=== PATIENT | male | born 1945 | race Two or more races ===

== ENCOUNTER → 2022-12-01 | Outpatient (CLI) | payer OTHER | END | disposition home or self-care (01) | LOC: LAB 14:34 | PROVIDERS: ATTEND Internal Medicine | DX: R19.7 Diarrhea, unspecified (principal) | CPT/HCPCS: 87177 ==

== ENCOUNTER → 2022-12-08 | Outpatient (CLI) | payer OTHER | END | disposition home or self-care (01) | LOC: LAB 15:16 | PROVIDERS: ATTEND Internal Medicine | DX: K52.9 Noninfective gastroenteritis and colitis, unspecified (principal) | CPT/HCPCS: 87045; 87427; 87493 ==

== ENCOUNTER 2022-12-14 12:48 | Inpatient (IN) | payer OTHER ==
[~2022-12-14] VITALS: Ht 188 cm; Wt 83.5 kg
[2022-12-14 13:10] VITALS: PULSE 22; RESP 22; O2SAT 6
[2022-12-14] MEDS ORDERED: FUROSEMIDE 40 MG/4 ML VIAL IV ONE (13:15)
[2022-12-14 13:52] LABS: Urine Bacteria FEW /hpf (None Seen); Urine Blood Negative /uL (Negative); Urine Clarity Clear (Clear); Urine Color Yellow (Yellow); Urine Protein, UAD 1+ (Negative); Urine Specific Gravity 1.014 (1.001-1.035); Urine Urobilinogen Normal (Negative); Urine WBC 1 /hpf (0 - 3)
[2022-12-14] MEDS ORDERED: METO-289 PO (14:05)
[2022-12-14] MEDS ORDERED: POTA-264 PO (14:05)
[2022-12-14] MEDS ORDERED: ATOR40TA52 PO (14:05)
[2022-12-14] MEDS ORDERED: CLON-853 PO (14:05)
[2022-12-14] MEDS ORDERED: FURO40TA4 PO (14:05)
[2022-12-14] MEDS ORDERED: TRAM50TA2 PO (14:05)
[2022-12-14] MEDS ORDERED: ALPR0.5T7 PO (14:07)
[2022-12-14] MEDS ORDERED: LORA-1105 PO (14:07)
[2022-12-14 14:08] LABS: Albumin 3.6 g/dL (3.2-4.8); Alkaline Phosphatase 291 U/L (46-116); Anion Gap 13 (5-15); Aspartate Aminotransferase 804 U/L (13-40); BUN/Creatinine Ratio 20.6 (10.0-20.0); Bilirubin, Total 2.9 mg/dL (0.2-1.0); Blood Urea Nitrogen 41 mg/dL (9-23); Calcium 8.9 mg/dL (8.5-10.1); Carbon Dioxide 21 mmol/L (20-30); Chloride 105 mmol/L (98-107); Glucose 135 mg/dL (74-106); Potassium 4.9 mmol/L (3.5-5.1); Sodium 139 mmol/L (136-145)
[2022-12-14 14:08] LABS: Lactic Acid w/Reflex 3.4 mmol/L (0.4-2.0)
[2022-12-14] MEDS ORDERED: TEMA30CA PO (14:08)
[2022-12-14] MEDS ORDERED: ONDA-155 PO (14:09)
[2022-12-14 14:11] LABS: Basophils # (auto) 0 10 ^3/uL (0-0.2); Basophils % (auto) 0.3 % (0.0-2.0); Eosinophils # (auto) 0.1 10 ^3/uL (0-0.8); Eosinophils % (auto) 1.1 % (0.0-7.0); Hematocrit 46.7 % (41.0-53.0); Hemoglobin 14.8 g/dL (13.5-17.5); Lymphocytes # (auto) 1.1 10 ^3/uL (0.4-5.4); Lymphocytes % (auto) 17.3 % (10.0-50.0); Mean Corpuscular Hemoglobin 29.9 pg (28.0-32.0); Mean Corpuscular Hgb Conc. 31.8 g/dL (32.0-36.0); Mean Corpuscular Volume 94.3 fL (80.0-100.0); Monocytes # (auto) 0.6 10 ^3/uL (0-1.3); Monocytes % (auto) 8.9 % (0.0-12.0); Neutrophils # (auto) 4.6 10 ^3/uL (1.6-8.6); Neutrophils % (auto) 72.4 % (37.0-80.0); Nucleated Red Blood Cells % 1.3 %; Red Blood Cells 4.95 10^6/uL (4.5-5.90); Red Cell Distribution Width 16.5 % (11.8-14.3); White Blood Cell 6.3 10^3/uL (4.4-10.8)
[2022-12-14 14:20] LABS: Alanine Aminotransferase 1171 U/L (7-40); INR 1.8 (0.9-1.15); Partial Thromboplastin Time 32.8 SEC (24.5-34.5); Prothrombin Time 18.2 sec (9.3-11.8)
[2022-12-14] MEDS ORDERED: ACETAMINOPHEN 325 MG TAB PO PRN (15:30)
[2022-12-14] MEDS ORDERED: NITROGLYCERIN 0.4 MG SL TAB SL PRN (15:30)
[2022-12-14] MEDS ORDERED: MORPHINE SULFATE INJ 2 MG/ml SYRG IV PRN (15:30)
[2022-12-14 15:48] LABS: Triglycerides 90 mg/dL (< 150)
[2022-12-14 15:49] LABS: LDL Cholesterol 56 mg/dL (< 100)
[2022-12-14 15:50] LABS: Cholesterol 90 mg/dL (< 200); HDL Cholesterol 16 mg/dL (40-59)
[2022-12-14] MEDS: METOPROLOL TARTRATE 50 MG TAB PO SCH ×2 (16:25→22:38)
[2022-12-14] MEDS ORDERED: ALBUTEROL MEDNEB 2.5 mg/3ml NEB NEB PRN (16:30)
[2022-12-14 17:45] VITALS: PULSE 121; RESP 20; O2SAT 98
[2022-12-14] MEDS: ALBUTEROL MEDNEB 2.5 mg/3ml NEB NEB SCH ×2 (17:59→23:10)
[2022-12-14] MEDS: IPRATROPIUM BROM 0.5 MG/2.5ML INH SOL NEB SCH ×2 (17:59→23:10)
[2022-12-14] MEDS: FUROSEMIDE 20 MG/2 ML VIAL IV SCH (18:16)
[2022-12-14 19:30] VITALS: PULSE 108; RESP 18; O2SAT 100
[2022-12-14 23:49] LABS: Protein, Urine 43.9 mg/dL (0.0-11.9)
[2022-12-14 23:52] LABS: Creatinine, Urine 89.22 mg/dL (30.0-125.0)
[2022-12-15] VITALS (15 sets, daily range): BP systolic 83–93; BP diastolic 59–65; PULSE 107–129; RESP 12–22; TEMP 97.5–97.9; O2SAT 88–100
[2022-12-15] MEDS: IPRATROPIUM BROM 0.5 MG/2.5ML INH SOL NEB SCH ×6 (02:00→22:12)
[2022-12-15] MEDS: ALBUTEROL MEDNEB 2.5 mg/3ml NEB NEB SCH ×6 (02:00→22:14)
[2022-12-15 05:44] LABS: Basophils # (auto) 0 10 ^3/uL (0-0.2); Basophils % (auto) 0.1 % (0.0-2.0); Eosinophils # (auto) 0.1 10 ^3/uL (0-0.8); Eosinophils % (auto) 0.9 % (0.0-7.0); Hematocrit 46.1 % (41.0-53.0); Hemoglobin 14.9 g/dL (13.5-17.5); Lymphocytes % (auto) 11.1 % (10.0-50.0); Mean Corpuscular Hemoglobin 30.3 pg (28.0-32.0); Mean Corpuscular Hgb Conc. 32.4 g/dL (32.0-36.0); Mean Corpuscular Volume 93.6 fL (80.0-100.0); Monocytes # (auto) 1.1 10 ^3/uL (0-1.3); Monocytes % (auto) 12.2 % (0.0-12.0); Neutrophils # (auto) 6.7 10 ^3/uL (1.6-8.6); Neutrophils % (auto) 75.7 % (37.0-80.0); Nucleated Red Blood Cells % 1.4 %; Red Blood Cells 4.92 10^6/uL (4.5-5.90); Red Cell Distribution Width 16.3 % (11.8-14.3); White Blood Cell 8.9 10^3/uL (4.4-10.8)
[2022-12-15 06:01] LABS: Alanine Aminotransferase 931 U/L (7-40); Albumin 3.4 g/dL (3.2-4.8); Alkaline Phosphatase 300 U/L (46-116); Anion Gap 11 (5-15); Aspartate Aminotransferase 612 U/L (13-40); BUN/Creatinine Ratio 14.7 (10.0-20.0); Blood Urea Nitrogen 34 mg/dL (9-23); Calcium 8.9 mg/dL (8.7-10.4); Carbon Dioxide 23 mmol/L (20-30); Chloride 103 mmol/L (98-107); Glucose 129 mg/dL (74-106); Potassium 4.8 mmol/L (3.5-5.1); Sodium 137 mmol/L (136-145)
[2022-12-15] MEDS: FUROSEMIDE 20 MG/2 ML VIAL IV SCH ×2 (06:30→18:58)
[2022-12-15] MEDS: DOBUTamine 1000MCG/ML 250 ML IV SCH (09:41)
[2022-12-15] MEDS ORDERED: DIGOXIN (250MCG/ML) 2 ML AMPULE IV ONE (09:45)
[2022-12-15] MEDS: ENOXAPARIN SOD 100 MG/1 ML SYRINGE SC SCH (10:23)
[2022-12-15] MEDS: ALPRAZolam 0.5 MG TAB PO PRN (16:29)
[2022-12-15] MEDS ORDERED: TEMA30CA PO (21:13)
[2022-12-15] MEDS ORDERED: UMEC1AER IN (21:13)
[2022-12-16] VITALS (15 sets, daily range): BP systolic 94–102; BP diastolic 62–76; PULSE 115–147; RESP 14–20; TEMP 97–98.1; O2SAT 94–100
[2022-12-16] MEDS: IPRATROPIUM BROM 0.5 MG/2.5ML INH SOL NEB SCH ×7 (02:00→21:53)
[2022-12-16] MEDS: ALBUTEROL MEDNEB 2.5 mg/3ml NEB NEB SCH ×7 (02:00→21:53)
[2022-12-16] MEDS: ALPRAZolam 0.5 MG TAB PO PRN ×2 (03:47→23:19)
[2022-12-16] MEDS: FUROSEMIDE 20 MG/2 ML VIAL IV SCH ×2 (06:04→19:41)
[2022-12-16] MEDS: DOBUTamine 1000MCG/ML 250 ML IV SCH (06:05)
[2022-12-16 06:56] LABS: Chloride 102 mmol/L (98-107); Potassium 3.8 mmol/L (3.5-5.1); Sodium 137 mmol/L (136-145)
[2022-12-16 06:57] LABS: Calcium 8.2 mg/dL (8.7-10.4)
[2022-12-16 07:00] LABS: Basophils # (auto) 0 10 ^3/uL (0-0.2); Basophils % (auto) 0.1 % (0.0-2.0); Eosinophils # (auto) 0.1 10 ^3/uL (0-0.8); Eosinophils % (auto) 0.9 % (0.0-7.0); Hematocrit 42.3 % (41.0-53.0); Hemoglobin 13.7 g/dL (13.5-17.5); Lymphocytes # (auto) 0.6 10 ^3/uL (0.4-5.4); Lymphocytes % (auto) 8.5 % (10.0-50.0); Mean Corpuscular Hemoglobin 30.1 pg (28.0-32.0); Mean Corpuscular Hgb Conc. 32.5 g/dL (32.0-36.0); Mean Corpuscular Volume 92.8 fL (80.0-100.0); Monocytes # (auto) 0.8 10 ^3/uL (0-1.3); Monocytes % (auto) 11.5 % (0.0-12.0); Neutrophils # (auto) 5.4 10 ^3/uL (1.6-8.6); Nucleated Red Blood Cells % 0.3 %; Red Blood Cells 4.55 10^6/uL (4.5-5.90); Red Cell Distribution Width 16.3 % (11.8-14.3); White Blood Cell 6.9 10^3/uL (4.4-10.8)
[2022-12-16 07:02] LABS: BUN/Creatinine Ratio 12.6 (10.0-20.0); Blood Urea Nitrogen 28 mg/dL (9-23); Glucose 113 mg/dL (74-106); Magnesium 1.9 mg/dL (1.6-2.6)
[2022-12-16 07:36] LABS: Anion Gap 13 (5-15); Carbon Dioxide 22 mmol/L (20-30)
[2022-12-16 09:09] LABS: Hepatitis B Surface Antigen Negative (Negative)
[2022-12-16 09:29] LABS: Hepatitis A Ab IgM Negative
[2022-12-16 09:30] LABS: Hepatitis B Core IgM Negative; Hepatitis C Antibody Negative (Negative)
[2022-12-16] MEDS: PANTOPRAZOLE 40 MG TAB PO SCH (10:00)
[2022-12-16] MEDS: ENOXAPARIN SOD 100 MG/1 ML SYRINGE SC SCH (10:00)
[2022-12-16] MEDS ORDERED: ANGIOMAX 250 MG VIAL IV ONE (17:10)
[2022-12-16] MEDS ORDERED: fentaNYL CITRATE 100 MCG/2 ML VL ONE (17:10)
[2022-12-16] MEDS ORDERED: SODIUM CHL 0.9% 0 ML ONE (17:11)
[2022-12-16] MEDS ORDERED: MIDAZOLAM HCL 2MG/2ML 2ml VIAL (1mg/ml) ONE (17:11)
[2022-12-16] MEDS ORDERED: IODIXANOL 320MG/ML 100ML BTL IV ONE ×2 (17:24→17:57)
[2022-12-16] MEDS ORDERED: LIDOCAINE 2%HCL (LOCAL ANESTH.) INJ 20ML MDV ONE (17:24)
[2022-12-16] MEDS ORDERED: HEPARIN SODIUM (PORCINE) 5000 UNITS/ML 1ML VIAL ONE (17:31)
[2022-12-16] MEDS ORDERED: VERAPAMIL 2.5MG/ML INJ 2ML VIAL IV ONE (17:31)
[2022-12-17] VITALS (14 sets, daily range): BP systolic 97–111; BP diastolic 56–69; PULSE 127–136; RESP 15–20; TEMP 36.4; O2SAT 91–100
[2022-12-17] MEDS: ALBUTEROL MEDNEB 2.5 mg/3ml NEB NEB SCH ×5 (02:18→18:00)
[2022-12-17] MEDS: IPRATROPIUM BROM 0.5 MG/2.5ML INH SOL NEB SCH ×5 (02:18→18:00)
[2022-12-17 06:06] LABS: Basophils # (auto) 0 10 ^3/uL (0-0.2); Basophils % (auto) 0.2 % (0.0-2.0); Eosinophils # (auto) 0.1 10 ^3/uL (0-0.8); Eosinophils % (auto) 1.2 % (0.0-7.0); Hematocrit 41.5 % (41.0-53.0); Hemoglobin 13.6 g/dL (13.5-17.5); Lymphocytes # (auto) 0.5 10 ^3/uL (0.4-5.4); Lymphocytes % (auto) 9.8 % (10.0-50.0); Mean Corpuscular Hemoglobin 30.6 pg (28.0-32.0); Mean Corpuscular Hgb Conc. 32.7 g/dL (32.0-36.0); Mean Corpuscular Volume 93.4 fL (80.0-100.0); Monocytes # (auto) 0.7 10 ^3/uL (0-1.3); Monocytes % (auto) 12.7 % (0.0-12.0); Neutrophils % (auto) 76.1 % (37.0-80.0); Nucleated Red Blood Cells % 0.1 %; Red Blood Cells 4.45 10^6/uL (4.5-5.90); Red Cell Distribution Width 16.3 % (11.8-14.3); White Blood Cell 5.3 10^3/uL (4.4-10.8)
[2022-12-17 06:24] LABS: Alanine Aminotransferase 544 U/L (7-40); Albumin 2.9 g/dL (3.2-4.8); Alkaline Phosphatase 232 U/L (46-116); Anion Gap 9 (5-15); Aspartate Aminotransferase 246 U/L (13-40); BUN/Creatinine Ratio 12.1 (10.0-20.0); Blood Urea Nitrogen 24 mg/dL (9-23); Calcium 8.4 mg/dL (8.7-10.4); Carbon Dioxide 26 mmol/L (20-30); Chloride 100 mmol/L (98-107); Glucose 101 mg/dL (74-106); Magnesium 1.9 mg/dL (1.6-2.6); Potassium 3.2 mmol/L (3.5-5.1); Sodium 135 mmol/L (136-145)
[2022-12-17 06:25] LABS: Bilirubin, Total 3.2 mg/dL (0.2-1.0); Total Protein 5.2 g/dL (5.7-8.2)
[2022-12-17] MEDS: FUROSEMIDE 20 MG/2 ML VIAL IV SCH ×2 (06:37→18:00)
[2022-12-17] MEDS ORDERED: POTASSIUM CHLORIDE 40 MEQ, LIDOCAINE 1% (LOCAL ANESTH.) 4 ML in SODIUM CHL 0.9% 250 ML IV ONE (07:30)
[2022-12-17] MEDS ORDERED: DIGOXIN 0.125 MG TAB PO SCH (10:00)
[2022-12-17] MEDS: ENOXAPARIN SOD 100 MG/1 ML SYRINGE SC SCH (10:42)
[2022-12-17] MEDS: PANTOPRAZOLE 40 MG TAB PO SCH (10:43)
[2022-12-17] MEDS: ALPRAZolam 0.5 MG TAB PO PRN (12:54)
[2022-12-17] MEDS ORDERED: POTASSIUM CHL 20 Meq TABLET PO ONE (16:15)
== END 2022-12-17 19:25 | disposition hospice, home (50) | DRG 280 ==
LOC: ER 12:48 → EDBD 12:48 → TELE 15:21 → TELE-CENTR 12-15 20:37 → TELE-E-ADS 12-16 03:07
PROVIDERS: ADMIT Nurse Practitioner Family; ATTEND Internal Medicine
PROC: B211YZZ Fluoroscopy of Multiple Coronary Arteries using Other Contrast (ICD-10-PCS; principal; 2022-12-16)
DX: I21.4 Non-ST elevation (NSTEMI) myocardial infarction (principal); I50.43 Acute on chronic combined systolic (congestive) and diastolic (congestive) heart failure; J96.01 Acute respiratory failure with hypoxia; R57.0 Cardiogenic shock; I48.20 Chronic atrial fibrillation, unspecified; N17.9 Acute kidney failure, unspecified; I13.0 Hypertensive heart and chronic kidney disease with heart failure and stage 1 through stage 4 chronic kidney disease, or unspecified chronic kidney disease; G30.9 Alzheimer's disease, unspecified; R00.0 Tachycardia, unspecified; I50.82 Biventricular heart failure; I25.5 Ischemic cardiomyopathy; E78.5 Hyperlipidemia, unspecified; F02.80 Dementia in other diseases classified elsewhere, unspecified severity, without behavioral disturbance, psychotic disturbance, mood disturbance, and anxiety; N18.30 Chronic kidney disease, stage 3 unspecified; I25.10 Atherosclerotic heart disease of native coronary artery without angina pectoris; R74.01 Elevation of levels of liver transaminase levels; Z79.899 Other long term (current) drug therapy; Z99.81 Dependence on supplemental oxygen; Z51.5 Encounter for palliative care
CPT/HCPCS: 36415; 70450; 71045; 76705; 80048; 80053; 80061; 80074; 80162; 81001; 82570; 83605; 83735; 83880; 83930; 84156; 84300; 84443; 84484; 85025; 85379; 85610; 85730; 87040; 93005; 93306; 93454; 93970; 94640; 96374; 97163; 99152; 99291; G0378; J2001; J2250; Q9967